=== PATIENT | female | born 1985 | race Hispanic/Latino ===

== ENCOUNTER 2019-12-29 09:27 | Outpatient (CLI) | payer OTHER, SELFPAY ==
[2019-12-29 10:30] VITALS: BP 117/86; PULSE 87
--- NOTE | 2019-12-29 10:53 | PC.NURSE ---
0927-Pt came in stating she has been leaking fluid since 299.
--- NOTE | 2019-12-29 10:54 | PC.NURSE ---
1028- called,informed pt came in for leaking fluid. ROM plus is negative, fhr reactive. Order received to discharge pt home.
== END 2019-12-29 10:30 ==
LOC: ANHOBOP 10:28 → ANHLDR 10:30
PROVIDERS: Visit Provider Obstetrics & Gynecology
DX: O42.90 Premature rupture of membranes, unspecified as to length of time between rupture and onset of labor, unspecified weeks of gestation (principal); Z3A.00 Weeks of gestation of pregnancy not specified
CPT/HCPCS: 59025; 84112; 99199

== ENCOUNTER 2019-12-30 21:45 | Inpatient (IN) | payer OTHER, SELFPAY ==
[2019-12-31] VITALS (79 sets, daily range): BP systolic 62–183; BP diastolic 35–150; PULSE 71–143; RESP 20; TEMP 36.3–37.2; O2SAT 99–100; BMI 35.3
[2019-12-31 00:19] LABS: Basophils Percent Auto 0.2 % (0.2-1.2); Eosinophils Absolute Auto 0.1 K/mm3 (0-0.3); Eosinophils Percent Auto 0.7 % (0-4.4); Hematocrit 36.9 % (37.0-47.0); Hemoglobin 12.4 g/dL (12.0-15.0); Immature Granulocyte Absolute 0.08 K/mm3 (0.00-0.031); Immature Granulocyte Percent A 0.8 % (0-0.5); Lymphocytes Absolute Auto 2.41 K/mm3 (0.9-3.2); Lymphocytes Percent Auto 24.1 % (18.3-44.2); Mean Corpuscular HGB Conc 33.6 g/dl (32-36); Mean Corpuscular Hemoglobin 29.7 pg (26-34); Mean Corpuscular Volume 88.5 fl (80-100); Mean Platelet Volume 10.4 fl (7.4-10.4); Monocytes Absolute Auto 0.7 K/mm3 (0.1-0.6); Monocytes Percent Auto 7.2 % (2.6-8.5); Neutrophils Absolute Auto 6.7 K/mm3 (1.3-6.7); Platelet Count Result 232 k/mm3 (150-375); Red Blood Count 4.17 M/mm3 (4.2-5.4); Red Cell Distribution Width 14.2 % (11.5-14.5)
[2019-12-31] MEDS: LACTATED RINGERS 1,000 ML 125 ML IV CONT ×3 (01:27→07:03)
--- NOTE | 2019-12-31 01:47 | P.PNAN_ITS ---
Anes - Eval Pre Procedure Procedure: labor epidural Date/Time: 12/31/19 01:47 Surgeon: edgar Pre Op Diagnosis: CONTRACTIONS Patient Data Age: 34 Gender: F Height: Weight: Allergies Allergy/AdvReac Type Severity Reaction Status Date / Time No Known Allergies Allergy Unknown Verified 12/08/19 12:44 Home Medications Medication Instructions Recorded Confirmed Type PNV cmb#95-ferrous fumarate-FA 1 tablet PO DAILY 12/08/19 12/08/19 History [] Laboratory Tests 12/31/19 12/31/19 00:04 00:04 WBC 10.0 K/mm3 K/mm3 (4.5-10.0) RBC 4.17 M/mm3 L M/mm3 (4.2-5.4) Hgb 12.4 g/dL g/dL (12.0-15.0) Hct 36.9 % L % (37.0-47.0) MCV 88.5 fl fl (80-100) MCH 29.7 pg pg (26-34) MCHC 33.6 g/dl g/dl (32-36) RDW 14.2 % % (11.5-14.5) Plt Count 232 k/mm3 k/mm3 (150-375) MPV 10.4 fl fl (7.4-10.4) Immature Gran % (Auto) 0.8 % H % (0-0.5) Neut % (Auto) 67.0 % % (45.5-73.1) Lymph % (Auto) 24.1 % % (18.3-44.2) [place] % (Auto) 7.2 % % (2.6-8.5) Eos % (Auto) 0.7 % % (0-4.4) Baso % (Auto) 0.2 % % (0.2-1.2) Lymph # (Auto) 2.41 K/mm3 K/mm3 (0.9-3.2) [place] # (Auto) 0.7 K/mm3 H K/mm3 (0.1-0.6) Eos # (Auto) 0.1 K/mm3 K/mm3 (0-0.3) Baso # (Auto) 0.0 K/mm3 K/mm3 (0.0-0.1) Abs Immat Gran (auto) 0.08 K/mm3 H K/mm3 (0.00-0.031) Absolute Neuts (auto) 6.7 K/mm3 K/mm3 (1.3-6.7) Absolute Nucleated RBC 0.0 K/mm3 K/mm3 (0.0-0.012) Nucleated RBC % 0.0 % % (0.0-0.2) RPR Pending Patient hx anesthesia problems: none Family hx anesthesia problems: none PMFSH Family History Family History (Updated 12/08/19 @ 12:47 by Shannon Rivers RN) Father Hypertension High cholesterol Diabetes mellitus Mother Hypertension Social History Social History Smoking status: Never smoker Substance use: never Spiritual care concerns: No Exam Day of Procedure 12/31/19 01:47
--- NOTE | 2019-12-31 03:43 | WPDOBADMIT ---
Obstetrics - Admit Note Admission Note: 34y/o @ 39 weeks who presented in spontaneous labor. VSS Contractions regular; fhr category 1 Cervix 4-5/501/-2 AROM moderate amount of clear odorless fluid Comfortable with epidural Anticipate Discussed student travel services professional with patient and she has agreed to have her do the delivery record reviewed. No pertinent additions to the history and/or any subsequent changes in the physical findings that are not consistent with the expected course of the were found. Additions to the history and/or subsequent changes in the physical findings follow. None.
[2019-12-31] MEDS: ONDANSETRON INJ 4 MG/2 ML VIAL IV PUSH (10:17)
[2019-12-31 10:54] LABS: Rapid Plasma Reagin Non-Reactive (NonReactive)
--- NOTE | 2019-12-31 12:10 | PM.OBPRVD ---
OB - Delivery Note Procedure Delivery date: 12/31/19 Intrapartal events: None Induction method: none Delivery monitor: external FHT and external uterine Route of delivery: Laceration description: Periurethral - 1st Degree Estimated blood loss (mL): 52 Anesthesia type: Epidural Narrative: Delivery per S Jeanette SIMMONS. Meconium noted at delivery. Cord clamped at 3 minutes. Cord gasses collected .5cc arterial 1.25cc venous. Baby Date of : 12/31/19 Time of : 11:49 Weeks of gestation at delivery: 39 Infant gender: Male Weight (pounds): 7 Weight (ounces): 12 presentation: vertex position: Right Occiput Anterior Placenta delivery description: Spontaneous cord vessel description: 3 Vessels score one minute: 9 score five minutes: 9
[2019-12-31] MEDS: ACETAMINOPHEN 325 MG TABLET 650 MG PO ×2 (13:01→17:06)
[2019-12-31] MEDS: IBUPROFEN 600 MG TABLET PO ×2 (14:00→22:24)
[2019-12-31] MEDS: WITCH HAZEL 40 PADS 1 PAD TOPICAL (14:01)
[2019-12-31] MEDS: BENZOCAINE 20% AER SPR (*SP) 56 GM CAN 1 SPRAY TOPICAL (14:01)
--- NOTE | 2019-12-31 15:37 | PC.NURSE ---
Patient transferred to post room #283 per wheelchair from labor and delivery. Support person present. Oriented to unit, room, information board, rooming in, admission packet and security measures. Patient verbalizes understanding.
[2020-01-01 02:41] VITALS: BP 117/73; PULSE 78; RESP 18; TEMP 36.9
[2020-01-01] MEDS: IBUPROFEN 600 MG TABLET PO ×2 (04:51→12:06)
[2020-01-01 05:41] LABS: Hematocrit 31.6 % (37.0-47.0); Hemoglobin 10.6 g/dL (12.0-15.0)
[2020-01-01 08:00] VITALS: BP 110/71; PULSE 78; RESP 18; TEMP 36.3; O2SAT 100
--- NOTE | 2020-01-01 08:14 | PM.OBPNVD ---
OB - PN: Subj Subjective Date/time seen: 01/01/20 08:14 OB - PN: Obj Data Labs CBC & Chem 7: 01/01/20 05:06 Labs: Laboratory Results - last 24 hr 12/31/19 01/01/20 00:04 05:06 Hgb 10.6 L Hct 31.6 L RPR Non-reactive OB - PN A/P Plan day: 1 Plan: routine care Time Spent With Patient Time: Total time spent is greater than 50% in coordination of care (as documented) at patient's floor/unit and/or counseling patient: Time with patient: less than 15 minutes Review of Systems Review of Systems: All systems reviewed & are unremarkable except as noted in HPI and below Exam Narrative: Exam Narrative: Fundus firm and vaginal flow controlled. Lower ext neg for edema. No pain, redness, or warmth. Homans negative.
[2020-01-01] MEDS: WITCH HAZEL 40 PADS 1 PAD TOPICAL (09:15)
[2020-01-01] MEDS: BENZOCAINE 20% AER SPR (*SP) 56 GM CAN 1 SPRAY TOPICAL (09:15)
[2020-01-01] MEDS: MULTIVIT/MIN/PREN/FOL AC/IRON TABLET 1 TAB PO (09:15)
[2020-01-01] MEDS: DOCUSATE SODIUM 100 MG CAPSULE PO (09:16)
--- NOTE | 2020-01-01 11:11 | PC.NURSE ---
Self care and infant care discharge instructions given to mother including follow up visit date and time. Mother verbalized understanding. No questions or concerns voiced. Family at side.
--- NOTE | 2020-01-01 11:32 | PC.NURSE ---
Patient viewed the discharge video Mother & Baby Care, The First Two Weeks . Patient was given the opportunity and encouraged to ask questions. Patient verbalized understanding of information shared and has been given the mother/baby guide for home reference.
--- NOTE | 2020-01-01 13:00 | PC.NURSE ---
1300 Breast feeding note; mother called nurse to room to assist and evaluate breast feeding as nurse had requested her do to. Report was that infant was probably latching shallow for feedings. Nurse instructed mother how to assess that baby was latching with deep latch, and mother agreed that probably baby had been latching shallow. Mother called nurse when baby was more awake and showing feeding cues. Mother was shown cross cradle position alignment, with use of nose to nipple latch-on technique, holding breast in ?U? hold and asymmetrical latch on discussing rational for each. Baby awake, eager; several attempts required; cross-cradle position used. Baby latched after several attempts, apparent deep latch; maintained latch and demonstrated vigorous, rhythmic sucking. nursed eagerly, with steady draws and frequent swallowing noted. Reviewed signs of a correct latch, effective nursing and suck swallow ratio. Mother stated she could feel the difference with a deeper latch; pt's present and also was shown baby at breast with deep latch and rhythmic sucking. Reviewed frequency and duration of feedings, q2-3 hours and on demand, and nipple care. Mother is wishing for 24 hour discharge. Explained to mother she can call or return if she has issues. Mother is feeding as required and waking infant to feed if needed. is currently meeting outcomes for weight, output, jaundice and feeding frequencies. Mother states she feels confident to continue effective at home. Reviewed transition to breast milk, signs of adequate intake, and engorgement/relief. Instructed to call ICP if intake/output less than required. Reviewed regular medications mother is taking. Information provided per Joanna. Reviewed community resources on the [employer] website and in the Mom/Baby guide. Information on outpatient services provided. Mother has no further questions at this time. Reviewed feeding cues, frequencies, duration of feedings, feeding elimination flow sheet, and signs of adequate intake. Infant was[able/unable] to maintain latch without discomfort to mother. Nipple care reviewed. Instructed mother to call out for RN assistance if she is unable to latch infant for feeding or she has discomfort with nursing. Instructed feeding should be initiated three hours from start of last feeding or if feeding cues are noted before. Mother voiced understanding of information shared.
--- NOTE | 2020-01-01 13:04 | WPDANLDPN2 ---
Anes-Prog Note L&D Date/Time: 01/01/20 13:04 Comfortable throughout: labor Neuraxial method: epidural Epidural/Spinal procedure site: clean & non-tender Neuro status: Neuro function grossly intact. Cardiovascular status: normal Respiratory status: normal Airway patency: baseline Mental status: baseline Post-Op hydration status: normal Vital Signs: Last Vital Signs Temp 36.3 C L 01/01/20 08:00 Pulse 78 01/01/20 08:00 Resp 18 01/01/20 08:00 BP 110/71 01/01/20 08:00 Pulse Ox 100 01/01/20 08:00 Pain score (VAS): 0/10. Patient resting in bed at time of assessment, appears comfortable. Support person at bedside. Post-procedural complaints: none Patient feedback: Patient satisfied with anesthetic care.
--- NOTE | 2020-01-01 14:15 | PC.NURSE ---
Addendum entered by Angelique Early RN 01/01/20 14:16: 0945 pt seen at Original Note: Consult with pt., mother reports she attempted to breast feed first child without success. was not latching, mother began supplementing within the first few feedings and quickly switched to bottle feeding. Mother is pleased this infant is eagerly latching, mother reports some tenderness with feedings. Requested mother call out next feeding for assist.
[2020-01-01] MEDS: TETANUS,DIPHTHERIA,AC PERTUSSIS ADULT 0.5 ML (ADACEL) IM (14:17)
[2020-01-02 09:27] VITALS: BP 127/78; PULSE 75; RESP 20; TEMP 36.9
--- NOTE | 2020-01-05 08:04 | PM.OBDSVD ---
DS: Diagnosis Admitting Diagnosis Admitting Diagnosis: Encounter for supervision of normal , unspecified, third trimester Discharge Diagnosis (1) Vaginal delivery: Code(s): O80 - Encounter for full-term uncomplicated delivery Status: Acute OB - DS: Summary OB Procedures : None OB Procedures Intrapartum: Spontaneous Vag Delivery OB Procedures: : None Time Spent with Patient Time attestation: Total time spent providing and/or coordinating discharge services: DS: Data Data Completed and Pending Pending studies at discharge: Pending at discharge 12/31/19 14:21 Surgical [PTH] Routine Discharge Plan Discharge Attending physician on discharge: Samanta Barth Consulting providers: Pily Ro Discharging Clinician: Pily Ro Patient Disposition: Home, Self-Care Activity: may drive after 2 weeks and pelvic rest Diet: regular Discharge Instructions: Education: Mom and Baby Guide Given to: Mother Follow-Up: Call your delivering provider's office for an appointment to be seen in: 4 Weeks Mom and baby should come to the [facility] for the follow-up appointment. Appointment Date/Time: January 02, 2020 at 9:00 am What to expect at your follow-up visit: Blood Pressure Check Physical Assessment Call [phone] if you are unable to keep your appointment time. BREAST CARE: 1. Wear a snug supportive bra. 2. For engorgement discomfort: Breast Feeding: A. Apply warm moist washcloths B. Express milk as needed to relieve engorgement C. Wear loose clothing 3. For sore nipples: A. Identify correct latch-on B. Apply warm moist washcloths before and after nursing C. Air dry nipples after nursing D. May apply Lansinoh cream to nipples EPISIOTOMY/PERINEAL CARE: 1. Until bleeding stops, use your barbara bottle after urinating 2. Change your pad frequently throughout the day 3. You may take sitz baths several times a day (fill your bathtub with warm water and soak for 20 minutes.) Do NOT bathe in the water 4. No tub baths until seen by your physician - You may shower ACTIVITY: 1. Rest as much as possible. 2. Do not exercise or lift anything heavier than your baby (such as laundry or other children.) 3. Avoid stairs or driving as much as possible. 4. Do not put anything into the vagina. No douching, tampons, or sexual activity until seen by physician. NOTIFY PHYSICIAN IF YOU HAVE ANY QUESTIONS OR IF ANY OF THE FOLLOWING SYMPTOMS OCCUR: 1. If your episiotomy becomes red, swollen, or more painful than what you have experienced in the hospital. 2. If your vaginal bleeding becomes foul smelling. 3. If your vaginal bleeding becomes more heavy than a period or if your bleeding changes from pink to bright red. However, you may pass an occasional walnut-sized clot once or twice for the first week . 4. If you experience a sharp, shooting pain in you calves. 5. If you discover a hard, reddened area on your breast or if you experience flu-like symptoms. DIET: 1. Eat regular, well-balanced meals. 2. Drink plenty of fluids daily. If , drink to thirst. Stand Alone Forms: General Discharge Information Follow-up/Referrals: Pily Ro CNM [Certified Nurse It Business Systems Analyst] - Discharge Medications: New acetaminophen [Mapap (acetaminophen)] 325 mg Tablet 650 mg PO Q6H PRN (Reason: Mild Pain (1-3) Or Headache) RF: 0 docusate sodium 100 mg Capsule 100 mg PO BID PRN (Reason: Constipation) RF: 0 ibuprofen 600 mg Tablet 600 mg PO Q6H PRN (Reason: Cramping) RF: 0 simethicone 80 mg Tablet,Chewable 80 mg PO Q2H PRN (Reason: Gas) RF: 0 Continued PNV cmb#95-ferrous fumarate-FA [] 28 mg iron- 800 mcg Tablet 1 tablet PO DAILY RF: 0 Date of admission: 12/30/19 21:45 Primary Care Provider: UNKNOWN,DOCTOR Ad
== END 2020-01-01 14:21 | disposition home or self-care (01) | DRG 560 ==
LOC: ANHLDR 12-31 07:40 → ANHOB2 12-31 15:41
PROVIDERS: Advanced Practice Midwife; Admitting Provider Obstetrics & Gynecology; Visit Provider Obstetrics & Gynecology
DX: O70.0 First degree perineal laceration during delivery (principal); Z37.0 Single live birth; Z3A.39 39 weeks gestation of pregnancy
CPT/HCPCS: 36415; 85014; 85018; 85025; 86592; 86850; 86900; 86901; 88307; 90715; A9270; J2405; J2590; J2795; J7120

== ENCOUNTER 2022-03-20 12:09 | Emergency (ER) | payer OTHER, SELFPAY ==
--- NOTE | ~2022-03-20 | CT_ITS ---
EXAMINATION: CT brain wo con DATE: 03/20/2022 12:57 INDICATION: Posterior headache. Confusion. Fall. TECHNIQUE: Computed tomography (CT) of the head was performed without intravenous contrast. The mA wa s adjusted according to patient size. Iterative reconstruction technique was employed. The dose-lengt h product was 605.33 mGy-cm. COMPARISON: None FINDINGS: There is no intracranial hemorrhage, acute infarction, or abnormal intracranial mass lesion . The ventricles are normal in size. The mastoid air cells are normal. The paranasal sinuses are jose r. The orbits are normal. There is left posterior scalp soft tissue swelling. IMPRESSION: 1. Normal brain. Reviewed, dictated and finalized at location A. IMPRESSION: 1. Normal brain.
--- NOTE | ~2022-03-20 | CT_ITS ---
EXAMINATION: CT cervical spine wo con DATE: 03/20/2022 12:57 INDICATION: Head injury. Fall. TECHNIQUE: Computed tomography (CT) of the cervical spine was performed without intravenous contrast. Automated exposure control and iterative reconstruction technique were employed. The dose-length pro duct was 419.75 mGy-cm. COMPARISON: None FINDINGS: There is 4 degrees dextrocurvature of cervical spine. There is mild kyphosis of cervical sp ine. Vertebral body heights and intervertebral disc heights are normal. At C7-T1, there is mild bilat eral facet joint osteoarthritis. No neural foraminal stenosis or central canal stenosis. IMPRESSION: 1. No fracture. Reviewed, dictated and finalized at location A. IMPRESSION: 1. No fracture.
[2022-03-20 12:13] VITALS: BP 137/84; PULSE 94; RESP 16; TEMP 36; O2SAT 99
--- NOTE | 2022-03-20 12:41 | ED.HEATRA ---
HPI - Head Injury General Chief complaint: Head Injury Stated complaint: head injury Time Seen by Provider: 03/20/22 12:35 Source: RN notes reviewed History of Present Illness HPI Narrative: Patient presents emergency department from home for head injury. Patient states yesterday she was at congregational when she slipped and fell backwards landed on her buttocks and striking the back of her head she states she had no loss of consciousness but felt confused following the she states that she has had residual headache and feels groggy. She has not taking medication for symptoms she does note that she has some mild neck pain on the right side as well she denies any fevers or chills vision changes numbness or tingling in the extremities or any other symptoms Related Data Home Medications Medication Instructions Recorded Confirmed PNV cmb#95-ferrous fumarate-FA 1 tablet PO DAILY 12/08/19 12/08/19 [] Allergies Allergy/AdvReac Type Severity Reaction Status Date / Time No Known Allergies Allergy Unknown Verified 03/20/22 12:17 Review of Systems Review of Systems: Gen.: Denies fevers or chills Eyes: Denies eye pain or visual change ENT: Denies congestion Respiratory: Denies shortness of breath CV: Denies chest pain or palpitations GI: Denies abdominal pain nausea, emesis denies chance of Musculoskeletal: Denies back pain or muscle pain Neuro: See HPI Skin: Denies rash Except as documented, all other systems reviewed and negative [facility] Past Medical History Medical History (Updated 03/20/22 @ 13:04 by Pantera Carolina DO) Patient denies significant medical history Family History Family History (Updated 12/08/19 @ 12:47 by Shannon Rivers RN) Father Hypertension High cholesterol Diabetes mellitus Mother Hypertension Social History Social History Smoking status: Never smoker Substance use: never Spiritual care concerns: No Exam Narrative: APPEARANCE: No acute distress, nontoxic, resting in bed EYES: EOMI HEENT: Normocephalic, atraumatic, OMM TMs clear bilaterally no facial tenderness Neck: No midline tenderness palpation tender palpation right [place] muscles C5-7 RESPIRATORY: No respiratory distress Clear to auscultation bilaterally with no rhonchi wheezing or rales. CARDIOVASCULAR: Regular rate and rhythm without murmurs rubs or gallops. ABDOMINAL: Soft, nontender, nondistended, MUSCULOSKELETAl: Moves all extremities. No clubbing, cyanosis or edema. NEURO: Awake and alert x 4. Following commands, speech normal, no focal deficits SKIN:: Warm, dry. No rashes lesions or abrasions PSYCHIATRIC: Normal affect/mood, Course Course Emergency Course: Discussed with patient results of workup and diagnosis. Discussed need for follow-up with primary care, proper use of medication, and reasons to return to the emergency department. Patient understands and agrees to current treatment plan Vital Signs Vital signs: Vital Signs Temperature 96.8 F L 03/20/22 12:13 Pulse Rate 94 03/20/22 12:13 Respiratory Rate 16 03/20/22 12:13 Blood Pressure 137/84 03/20/22 12:13 Pulse Oximetry 99 03/20/22 12:13 Temperature 96.8 F L 03/20/22 12:13 Pulse Rate 94 03/20/22 12:13 Respiratory Rate 16 03/20/22 12:13 Blood Pressure 137/84 03/20/22 12:13 Pulse Oximetry 99 03/20/22 12:13 MDM - Head Injury Imaging Data Radiologist's impression: ITS Impressions Head CT 03/20/22 12:58 IMPRESSION: 1. Normal brain. Cervical Spine CT 03/20/22 12:59 IMPRESSION: 1. No fracture. Discharge Plan Discharge Clinical Impression: Contusion of head, Cervical strain, acute Patient Disposition: Home, Self-Care Condition: Stable Instructions: Antibiotic Form, Head Injury (ED) Additional Instructions: Return for change in mental status vomiting or any other symptoms of concern Prescriptions:
[2022-03-20 13:42] VITALS: BP 118/68; PULSE 70; RESP 16; TEMP 36.8; O2SAT 100
== END 2022-03-20 13:44 | disposition home or self-care (01) ==
PROVIDERS: Emergency Provider Emergency Medicine
DX: S00.93XA Contusion of unspecified part of head, initial encounter (principal); S16.1XXA Strain of muscle, fascia and tendon at neck level, initial encounter; W01.0XXA Fall on same level from slipping, tripping and stumbling without subsequent striking against object, initial encounter
CPT/HCPCS: 70450; 72125; 99284

== ENCOUNTER 2023-03-31 23:40 | Emergency (ER) | payer OTHER, SELFPAY ==
[2023-03-31 23:42] VITALS: BP 143/85; PULSE 97; RESP 16; TEMP 36.8; O2SAT 100
--- NOTE | 2023-04-01 01:39 | PC.NURSE ---
no answer at triage
== END 2023-04-01 03:12 | disposition left against medical advice (07) ==
LOC: ANHED 04-01 01:43
DX: S61.411A Laceration without foreign body of right hand, initial encounter (principal)
CPT/HCPCS: 99199

== ENCOUNTER 2024-01-28 13:51 | Emergency (ER) | payer OTHER, SELFPAY ==
[2024-01-28 14:10] VITALS: BP 127/74; PULSE 96; RESP 18; TEMP 36.7; O2SAT 100
--- NOTE | 2024-01-28 14:21 | ED.URI ---
HPI - URI/Sore Throat General Chief Complaint: Upper Respiratory Infection Stated Complaint: congested,JOHNSON,cough 21wks Time Seen by Provider: 01/28/24 13:55 Source: patient Mode of arrival: ambulatory Limitations: no limitations History of Present Illness HPI Narrative: Ciara is a 38-year-old female patient presenting to the clinic today with complaints of headache, cough, and congestion for the past 4 weeks. Over the last week she has developed green nasal congestion and sinus pressure. Denies any fever or chills. Contacted her OBGYN who is wanting her to come in and be tested for COVID and influenza. MD elicited complaint: cough, nasal congestion and sinus pain Related Data Home Medications Medication Instructions Recorded Confirmed vit no.95-ferrous 1 tablet PO DAILY 12/08/19 01/28/24 fumarate 28 mg-folic acid 800 mcg tablet () aspirin 81 mg tablet,delayed 81 mg PO DAILY 01/28/24 01/28/24 release (Adult Low Dose Aspirin) Allergies Allergy/AdvReac Type Severity Reaction Status Date / Time No Known Allergies Allergy Unknown Verified 03/20/22 12:17 Review of Systems Review of Systems: Pertinent positives per HPI. Patient denies any fever, chills, rash, headache, visual changes, dizziness, cough, shortness of breath, chest pain, palpitations, nausea, vomiting, diarrhea, constipation, abdominal pain, or any urinary issues. [facility] Past Medical History Medical History (Updated 01/28/24 @ 14:37 by Chris Huston APRN) Patient denies significant medical history Family History Family History Father Hypertension High cholesterol Diabetes mellitus Mother Hypertension Social History Social History Smoking status: Never smoker Substance use: never Spiritual care concerns: No Comments At the time of my signature, I reviewed and agree with the nursing past medical, surgical, social, and family history. There is no relevant family history pertinent to the patient complaint. Exam Narrative: General: Well-developed, well nourished, in no apparent distress Head: Normocephalic, atraumatic Eyes: Pupils equally round and reactive to light bilaterally, EOM intact, sclera and conjunctive clear, no discharge, lids normal Ears: TMs intact and clear, ear canals clear, no drainage, grossly hearing normal. Nose: Nares patent, green nasal discharge, moderate inflammation to bilateral turbinates, left sided maxillary sinus tenderness. Mouth: Oral pharynx without lesions or masses, good dentition, MMM. Neck: Supple, trachea midline, no enlargement of anterior or posterior cervical nodes, no thyroid masses or goiter palpable. Cardio: Regular rate and rhythm, s1 and s2 normal, no murmur appreciated. Resp: Clear to auscultation bilaterally, no rhonchi, rales, wheezing or rubs Course Course Emergency Course: Portions of this record may have been created with voice recognition software. Level of Care: Express Care Visit Vital Signs Vital signs: Vital Signs Temperature 36.7 C 01/28/24 14:10 Pulse Rate 96 01/28/24 14:10 Respiratory Rate 18 01/28/24 14:10 Blood Pressure 127/74 01/28/24 14:10 Pulse Oximetry 100 01/28/24 14:10 Oxygen Delivery Room Air 01/28/24 14:10 Temperature 36.7 C 01/28/24 14:10 Pulse Rate 96 01/28/24 14:10 Respiratory Rate 18 01/28/24 14:10 Blood Pressure 127/74 01/28/24 14:10 Pulse Oximetry 100 01/28/24 14:10 Oxygen Delivery Room Air 01/28/24 14:10 Vital signs reviewed MDM - URI/Sore Throat MDM Narrative Medical decision making narrative: At the time of visit patient is resting comfortably on the exam table. Patient appears to be nontoxic. Labs: COVID and influenza testing was completed per patient's request and negative. Plan: I suspect patient has sinus infection
== END 2024-01-28 14:43 | disposition home or self-care (01) ==
PROVIDERS: Emergency Provider Nurse Practitioner Family
DX: O99.512 Diseases of the respiratory system complicating pregnancy, second trimester (principal); Z3A.21 21 weeks gestation of pregnancy; J01.90 Acute sinusitis, unspecified; Z20.822 Contact with and (suspected) exposure to COVID-19; Z79.82 Long term (current) use of aspirin
CPT/HCPCS: 87426; 87804; 99213; G0463

== ENCOUNTER 2024-06-02 06:43 | Inpatient (IN) | payer OTHER, SELFPAY ==
[2024-06-02] VITALS (129 sets, daily range): BP systolic 78–150; BP diastolic 30–124; PULSE 25–165; RESP 18; TEMP 36.1–36.8; O2SAT 86–100; BMI 34.9
--- NOTE | 2024-06-02 07:23 | LDADM ---
This patient, Ciara Shea, was admitted to Labor/Delivery/Recovery 103 on 06/02/24 at 06:43. Plans for labor, pain management and were discussed with patient. Patient/family oriented to hospital policies and general routines including ID bracelet, bed and alarms, visiting hours, pain management, procedures, bathroom and other care routines, personal items, smoking policy, room service/diet and guest tray routines, security routines, and visiting hours. Patient/Family are encouraged to report perceived risks to care and to ask questions if they do not understand what they are told or what they should do. See [facility] for further documentation.
[2024-06-02] MEDS: OXYTOCIN 30 UNITS/NS 500 ML 30 UNITS/500 ML BAG IV CONT (07:25)
[2024-06-02] MEDS: LACTATED RINGERS 1,000 ML 125 ML IV CONT ×3 (07:26→14:51)
[2024-06-02 07:45] LABS: Basophils Percent Auto 0.3 % (0.2-1.2); Eosinophils Absolute Auto 0.1 K/mm3 (0-0.3); Eosinophils Percent Auto 1.6 % (0-4.4); Hematocrit 32.9 % (37.0-47.0); Hemoglobin 11.4 g/dL (12.0-15.0); Immature Granulocyte Absolute 0.08 K/mm3 (0.00-0.031); Immature Granulocyte Percent A 1.1 % (0-0.5); Lymphocytes Percent Auto 32.4 % (18.3-44.2); Mean Corpuscular HGB Conc 34.7 g/dl (32-36); Mean Corpuscular Hemoglobin 31.2 pg (26-34); Mean Corpuscular Volume 90.1 fl (80-100); Mean Platelet Volume 10.6 fl (7.4-10.4); Monocytes Absolute Auto 0.6 K/mm3 (0.1-0.6); Monocytes Percent Auto 8.3 % (2.6-8.5); Neutrophils Percent Auto 56.3 % (45.5-73.1); Platelet Count Result 198 k/mm3 (150-375); Red Blood Count 3.65 M/mm3 (4.2-5.4); Red Cell Distribution Width 14.3 % (11.5-14.5); White Blood Count 7.1 K/mm3 (4.5-10.0)
[2024-06-02 08:16] LABS: HIV 1/2 Ab P24 Ag Result Negative (Negative)
[2024-06-02 08:18] LABS: Rapid Plasma Reagin Non-Reactive (NonReactive)
--- NOTE | 2024-06-02 10:03 | WPDOBADMIT ---
Obstetrics - Admit Note Admission Note: record reviewed. No pertinent additions to the history and/or any subsequent changes in the physical findings that are not consistent with the expected course of the were found. Additions to the history and/or subsequent changes in the physical findings follow. IOL, SROM, anticipate vaginal delivery
--- NOTE | 2024-06-02 13:20 | WPDANESEPPF ---
Anes - Initial Pre Proc Eval Date/Time: 06/02/24 13:20 Surgeon: Jorge Barth MD Pre Op Diagnosis: Induction of Labor Patient Data Age: 39 Gender: F Height: Weight: Last Vital Signs Temp 36.4 C 06/02/24 13:00 Pulse 98 06/02/24 13:18 BP 123/80 06/02/24 13:18 Pulse Ox 100 06/02/24 13:19 O2 Del Method Room Air 06/02/24 07:21 Allergies Allergy/AdvReac Type Severity Reaction Status Date / Time No Known Allergies Allergy Unknown Verified 05/12/24 12:37 Home Medications Medication Instructions Recorded Confirmed Type vit no.95-ferrous 1 tablet PO DAILY 12/08/19 05/12/24 History fumarate 28 mg-folic acid 800 mcg tablet () aspirin 81 mg tablet,delayed 81 mg PO DAILY 01/28/24 05/12/24 History release (Adult Low Dose Aspirin) Laboratory Tests 06/02/24 06:58 WBC 7.1 K/mm3 (4.5-10.0) RBC 3.65 L M/mm3 (4.2-5.4) Hgb 11.4 L g/dL (12.0-15.0) Hct 32.9 L % (37.0-47.0) MCV 90.1 fl (80-100) MCH 31.2 pg (26-34) MCHC 34.7 g/dl (32-36) RDW 14.3 % (11.5-14.5) Plt Count 198 k/mm3 (150-375) MPV 10.6 H fl (7.4-10.4) Immature Gran % (Auto) 1.1 H % (0-0.5) Neut % (Auto) 56.3 % (45.5-73.1) Lymph % (Auto) 32.4 % (18.3-44.2) [place] % (Auto) 8.3 % (2.6-8.5) Eos % (Auto) 1.6 % (0-4.4) Baso % (Auto) 0.3 % (0.2-1.2) Lymph # (Auto) 2.30 K/mm3 (0.9-3.2) [place] # (Auto) 0.6 K/mm3 (0.1-0.6) Eos # (Auto) 0.1 K/mm3 (0-0.3) Baso # (Auto) 0.0 K/mm3 (0.0-0.1) Abs Immat Gran (auto) 0.08 H K/mm3 (0.00-0.031) Absolute Neuts (auto) 4.0 K/mm3 (1.3-6.7) Absolute Nucleated RBC 0.000 K/mm3 (0.0-0.012) Nucleated RBC % 0.0 % (0.0-0.2) RPR Non-reactive (NonReactive) HIV 1&2 Ab/P24 Ag 4thGn Negative (Negative) Blood Type A Positive Antibody Screen Negative Patient hx anesthesia problems: none Family hx anesthesia problems: none Results Review: All pre-operative results and documents have been reviewed as part of the pre-operative evaluation. [facility] Past Medical History Medical History Patient denies significant medical history Family History Family History Father Diabetes mellitus High cholesterol Hypertension Mother Hypertension Sibling Hypertension Asthma Social History Social History Smoking status: Never smoker Substance use: never Do You Feel Safe in your Home?: Yes Lack of Transportation: No Lack of Food: Never True Current Housing: I Have Housing Concerned About Future Housing: No Difficulty Paying Gas/Electric Bills: No Difficulty Paying for Meds: No Currently Unemployed: No Education: Don't Know Difficulty w/ Childcare or Family Care: No Spiritual care concerns: No Anes - Eval Final PreProcedure Day of Procedure 06/02/24 13:20 Patient weight: obese Heart: regular rate and rhythm Lungs: clear to auscultation Neurological: alert and oriented ASA classification: II Emergent: no Anesthetic plan: proceed Anesthesia type and monitoring: regional epidural and standard monitoring Results Review: All pre-operative results and documents have been reviewed as part of the pre-operative evaluation. Informed Consent: The patient's anesthetic plan and its attendant risks and benefits were discussed with the patient/family/POA. Questions were solicited and answers provided to the satisfaction of the patient/family/POA.
[2024-06-02] MEDS: SODIUM CHLORIDE 0.9% IV 300 ML 600 ML I-UTERINE (16:04)
--- NOTE | 2024-06-02 16:39 | PM.OBPRVD ---
OB - Vaginal Delivery Note Procedure Delivery date: 06/02/24 Intrapartal Events: Decelerations (suspect abruption) and Non-Reassuring Status Induction method: AROM Delivery monitor: External FHT and Internal Uterine Route of delivery: Episiotomy description: None Laceration Description: None Specimen: Yes Quantitative Blood Loss (ml): 100 Anesthesia type: Epidural Disposition: Floor Complications: No immediate complications Baby Date of : 06/02/24 Time of : 16:28 Gestational Age by Date: 39 Infant gender: Male presentation: vertex position: Left Occiput Anterior Placenta delivery description: Spontaneous Cord Vessel Description: 3 Vessels and Nuchal Cord (x1) score one minute: 8 score five minutes: 9 Narrative: mother and baby skin to skin in stable condition
[2024-06-02] MEDS: OXYTOCIN 30 UNITS/NS 500 ML 30 UNITS/500 ML BAG 125 UNITS IV CONT (17:02)
[2024-06-02] MEDS: ACETAMINOPHEN 325 MG TABLET 650 MG PO (18:44)
--- NOTE | 2024-06-02 20:00 | OBPPTRN ---
Patient transferred to post room #291 via W/C. Support person present. Oriented to unit, room, information board, rooming in, admission packet and security measures. Patient verbalizes understanding.
[2024-06-02] MEDS: IBUPROFEN 600 MG TABLET PO (20:40)
[2024-06-03 00:20] VITALS: BP 129/82; PULSE 76; RESP 16; TEMP 36.6
[2024-06-03 03:30] VITALS: BP 134/81; RESP 16; TEMP 36.3
[2024-06-03 04:45] LABS: Hematocrit 30.8 % (37.0-47.0); Hemoglobin 10.3 g/dL (12.0-15.0)
--- NOTE | 2024-06-03 05:15 | PM.OBPNVD ---
OB - PN: Subj Subjective Date/time seen: 06/03/24 05:15 Interval history: PPD#1 Doing well, pain controlled No nausea or vomiting Voiding without issue Combo feeding OB - PN: Obj Data Labs 06/03/24 03:30 Labs: Laboratory Results - last 24 hr 06/02/24 06/03/24 06:58 03:30 WBC 7.1 RBC 3.65 L Hgb 11.4 L 10.3 L Hct 32.9 L 30.8 L MCV 90.1 MCH 31.2 MCHC 34.7 RDW 14.3 Plt Count 198 MPV 10.6 H Immature Gran % (Auto) 1.1 H Neut % (Auto) 56.3 Lymph % (Auto) 32.4 [place] % (Auto) 8.3 Eos % (Auto) 1.6 Baso % (Auto) 0.3 Lymph # (Auto) 2.30 [place] # (Auto) 0.6 Eos # (Auto) 0.1 Baso # (Auto) 0.0 Abs Immat Gran (auto) 0.08 H Absolute Neuts (auto) 4.0 Absolute Nucleated RBC 0.000 Nucleated RBC % 0.0 RPR Non-reactive HIV 1&2 Ab/P24 Ag 4thGn Negative Blood Type A Positive Antibody Screen Negative OB - PN A/P Assessment and Plan (1) Vaginal delivery: Code(s): O80 - Encounter for full-term uncomplicated delivery Status: Acute Plan day: 1 Plan: routine care Time Spent With Patient Time: Total time spent is greater than 50% in coordination of care (as documented) at patient's floor/unit and/or counseling patient: Review of Systems Review of Systems: All systems reviewed & are unremarkable except as noted in HPI and below Exam Const: General: comfortable and no acute distress Orientation/consciousness: patient oriented x3 Resp: Effort & Inspection: normal respiratory effort
[2024-06-03] MEDS: IBUPROFEN 600 MG TABLET PO ×3 (07:15→23:50)
[2024-06-03] MEDS: DOCUSATE SODIUM 100 MG CAPSULE PO ×2 (07:16→17:48)
[2024-06-03] MEDS: POLYSACCHARIDE IRON COMPLEX 150 MG CAPSULE PO (07:16)
[2024-06-03 07:45] VITALS: BP 123/83; PULSE 72; RESP 16; TEMP 37.3; O2SAT 99
--- NOTE | 2024-06-03 11:30 | PC.NURSE ---
Introductions were made, then consulted with patient to assess needs related to . Mother led the conversation with her?plans to feed?her infant and the?experience so far. Discussed milk production, building/maintaining a milk supply, and pumping frequency. Mother has a history of latch issues where her nipples were cracked and bleeding. She doesn't seem to have any desire to put baby to breast but she was encouraged to call for assistance if she does decide to breastfeed. We reviewed that pumping shouldn't hurt, how to take apart the pump pieces for cleaning, and the supply and demand nature of breast milk production. Use and storage of breast milk discussed and she has the mom/baby guide for reference. Parents voiced understanding of information, demonstrated learning and will call if there is a request for assistance. Reported to the Primary RN.
[2024-06-03] MEDS: ACETAMINOPHEN 325 MG TABLET 650 MG PO ×2 (11:58→23:49)
--- NOTE | 2024-06-03 12:06 | WPDANESPN ---
Anes - Prog Note Post-Op Date/Time: 06/03/24 12:06 Cardiovascular status: normal Respiratory status: normal Airway patency: baseline Mental status: baseline Post-Op hydration status: normal Vital Signs: Last Vital Signs Temp 37.3 C 06/03/24 07:45 Pulse 72 06/03/24 07:45 Resp 16 06/03/24 07:45 BP 123/83 06/03/24 07:45 Pulse Ox 99 06/03/24 07:45 O2 Del Method Room Air 06/02/24 20:40 Pain Score (VAS): 0 I/O: Intake & Output 06/02/24 06/03/24 06/03/24 23:59 07:59 15:59 Output Total 645 Balance -645 Laboratory Tests 06/03/24 03:30 06/03/24 03:30 Hgb 10.3 L Hct 30.8 L Post-procedural complaints: none Patient Feedback: Patient satisfied with anesthetic care.
--- NOTE | 2024-06-03 12:07 | WPDANESPN ---
Anes - Prog Note Post-Op Date/Time: 06/03/24 12:07 Cardiovascular status: normal Respiratory status: normal Airway patency: baseline Mental status: baseline Post-Op hydration status: normal Vital Signs: Last Vital Signs Temp 37.3 C 06/03/24 07:45 Pulse 72 06/03/24 07:45 Resp 16 06/03/24 07:45 BP 123/83 06/03/24 07:45 Pulse Ox 99 06/03/24 07:45 O2 Del Method Room Air 06/02/24 20:40 Pain Score (VAS): 0 I/O: Intake & Output 06/02/24 06/03/24 06/03/24 23:59 07:59 15:59 Output Total 645 Balance -645 Laboratory Tests 06/03/24 03:30 06/03/24 03:30 Hgb 10.3 L Hct 30.8 L Post-procedural complaints: none Patient Feedback: Patient satisfied with anesthetic care.
[2024-06-03 12:17] VITALS: BP 128/75; PULSE 84; RESP 16; TEMP 36.5; O2SAT 100
[2024-06-03 19:30] VITALS: BP 133/92; PULSE 75; RESP 16; TEMP 36.7
[2024-06-03 22:17] VITALS: BP 142/84; PULSE 100; RESP 18; TEMP 36.9; O2SAT 99
[2024-06-04 04:53] VITALS: BP 131/91; PULSE 84; RESP 16; TEMP 36.8; O2SAT 99
[2024-06-04] MEDS: IBUPROFEN 600 MG TABLET PO (07:43)
[2024-06-04] MEDS: DOCUSATE SODIUM 100 MG CAPSULE PO (07:44)
--- NOTE | 2024-06-04 07:44 | PM.OBPNVD ---
OB - PN: Subj Subjective Date/time seen: 06/04/24 07:44 Interval history: PPD#2 Doing well, pain controlled No nausea or vomiting Voiding without issue Combo feeding OB - PN: Obj Data Labs 06/03/24 03:30 OB - PN A/P Plan day: 2 Plan: routine care and discharge home Time Spent With Patient Time: Total time spent is greater than 50% in coordination of care (as documented) at patient's floor/unit and/or counseling patient: Review of Systems Review of Systems: All systems reviewed & are unremarkable except as noted in HPI and below Exam Const: General: cooperative and healthy appearing Skin: General skin exam: normal color Neuro: General: patient oriented x3
--- NOTE | 2024-06-04 07:46 | P.DS_ITS ---
DS: Admitting Diagnosis Discharge Date 06/04/24 Admitting Diagnosis IOL DS: Discharge Diagnosis Discharge Diagnosis (1) Vaginal delivery: Code(s): O80 - Encounter for full-term uncomplicated delivery Status: Acute OB - DS: Summary OB Procedures : None OB Procedures Intrapartum: Spontaneous Vag Delivery OB Procedures: : None Peripartum Data Laceration Description: None Episiotomy description: None Time Spent with Patient Time attestation: Total time spent providing and/or coordinating discharge services: DS: Data Data Completed and Pending Pending studies at discharge: Pending at discharge 06/02/24 16:51 Surgical [PTH] Routine Discharge Plan Discharge Attending physician on discharge: Jorge Barth Discharging Clinician: Ryann Felipe Patient Disposition: Home, Self-Care Activity: pelvic rest Diet: regular Patient Instructions: Antibiotic Form Stand Alone Forms: General Discharge Information Follow-up/Referrals: Ryann Felipe, CNM [Certified Nurse Psychology Intern] - 1 Week Discharge Medications: New ibuprofen 600 mg Tablet 600 mg PO Q6H PRN (Reason: Cramping) Qty: 30 1RF Continued PNV cmb#95-ferrous fumarate-FA [] 28 mg iron- 800 mcg Tablet 1 tablet PO DAILY Discontinued aspirin [Adult Low Dose Aspirin] 81 mg Tablet,Delayed Release (Dr/Ec) 81 mg PO DAILY Date of admission: 06/02/24 06:43 Primary Care Provider: [facility] Admitting Provider: Jorge Barth Attending physician on admission: Jorge Barth Condition: Stable
[2024-06-04 07:55] VITALS: BP 140/85; PULSE 77; RESP 16; TEMP 37.2; O2SAT 98
--- NOTE | 2024-06-04 09:30 | PC.NURSE ---
Consulted with mother concerning needs and she shared her desire to pump and bottle feed. She has a wearable pump at home but has not received a pump through insurance this year. Patient provided with a Medela pump and encouraged to take all of her hospital pump parts home with her. Mother is feeding appropriately for growth of infant and understands stimulating to eat if needed. has had appropriate feedings in the last 24 hours meets the outcomes for weight, output, blood sugar and jaundice at this time. Reinforced understanding of milk production, transition of milk, signs of adequate intake, transition of stool, amount per feeding, community resources, and when to call a provider using the resource of the feeding sheet along with the mom and baby guide. Mother voiced understanding of the information shared, is confident to continue pumping at home, when to call for assistance, denies any additional assistance or education at this time. Reported to the Primary RN.
== END 2024-06-04 13:38 | disposition home or self-care (01) | DRG 560 ==
LOC: ANHLDR 06:49 → ANHOB2 20:23
PROVIDERS: Admitting Provider Obstetrics & Gynecology; Referring Provider Advanced Practice Midwife; Visit Provider Obstetrics & Gynecology
DX: O36.8330 Maternal care for abnormalities of the fetal heart rate or rhythm, third trimester, not applicable or unspecified (principal); Z3A.39 39 weeks gestation of pregnancy; Z37.0 Single live birth; O69.81X0 Labor and delivery complicated by cord around neck, without compression, not applicable or unspecified
CPT/HCPCS: 36415; 85014; 85018; 85025; 86592; 86703; 86850; 86900; 86901; 88307; A9270; G0432; J2590; J2795; J7030; J7120

== ENCOUNTER 2025-06-26 14:41 | Emergency (ER) | payer OTHER, SELFPAY ==
[2025-06-26 14:48] VITALS: BP 135/83; PULSE 101; RESP 18; TEMP 36.9; O2SAT 100
--- NOTE | 2025-06-26 14:59 | ED.NAVMDI ---
HPI - Nausea/Vomiting/Diarrhea General Chief complaint: Abdominal Pain Stated complaint: Stomach Pain Time Seen by Provider: 06/26/25 15:03 Source: patient and RN notes reviewed Mode of arrival: ambulatory Limitations: no limitations History of Present Illness HPI Narrative: 40-year-old female presents with concern for epigastric discomfort, diarrhea. Reports she has been experiencing symptoms since October, she experiences them monthly, they are not related to her menstrual cycle. She reports she is going through a lot of stress. She reports she has the urge to have a bowel movement frequently, sometimes it is loose or watery, sometimes it is soft. She reports occasional blood. She denies current nausea, vomiting. She denies fever, body aches, chills sweats. MD elicited complaint: diarrhea Related Data Home Medications ?Medication ?Instructions ?Recorded ?Confirmed ?Last Taken ?Type omega 8-rgz-jzq-fish oil 1,000 mg 1 cap PO DAILY 06/26/25 Unknown History (120 mg-180 mg) capsule (Fish Oil) Allergies Allergy/AdvReac Type Severity Reaction Status Date / Time No Known Allergies Allergy Unknown Verified 06/26/25 15:00 Review of Systems Review of Systems: CONSTITUTIONAL: Denies malaise, chills, sweats, or fever. ENT: Denies rhinorrhea, congestion, sinus pain, otalgia or sore throat. CARDIOVASCULAR: Denies chest pain, palpitations, or edema. RESPIRATORY: Denies cough or dyspnea. GASTROINTESTINAL: Reports epigastric discomfort. Denies other abdominal pain, nausea, vomiting. Reports loose stools and frequent stools. Denies bloody, or mucous stools. MUSCULOSKELETAL: Denies myalgia. NEUROLOGIC: Denies headache. All systems reviewed & are unremarkable except as noted in HPI and below PMFSH Past Medical History Medical History Patient denies significant medical history Family History Family History Father Diabetes mellitus High cholesterol Hypertension Mother Hypertension Sibling Hypertension Asthma Social History Social History Smoking status: Never smoker Substance use: never Do You Feel Safe in your Home?: Yes Lack of Transportation: No Lack of Food: Never True Current Housing: I Have Housing Concerned About Future Housing: No Difficulty Paying Gas/Electric Bills: No Difficulty Paying for Meds: No Currently Unemployed: No Education: Don't Know Difficulty w/ Childcare or Family Care: No Spiritual care concerns: No Comments At time of signature, agree with nursing past medical, surgical, social and family history. There is no relevant family history pertinent to the presenting complaint Exam Narrative: GENERAL: Well-appearing, well-nourished, and in no acute distress. HEAD: Normocephalic, atraumatic. EYES: PERRLA, conjunctivae clear, and EOMI. ENT: Nares clear. Mucous membranes moist. NECK: Supple. No lymphadenopathy CHEST: Speaks in full sentences. No respiratory distress. HEART: Regular rate and rhythm. SKIN: Warm, dry, no rash. NEURO: Alert and oriented x3. PSYCH: Normal mood and affect Course Course Emergency Course: Patient is aware of diagnosis, understands and agrees to treatment plan. Anticipatory guidance given. Patient agrees to follow-up as directed and is aware of reasons to seek care at the emergency department. Portions of this record may have been created with voice recognition software Level of Care: Express Care Visit Vital Signs Vital signs: Vital Signs Temperature 98.4 F 06/26/25 14:48 Pulse Rate 101 H 06/26/25 14:48 Respiratory Rate 18 06/26/25 14:48 Blood Pressure 135/83 06/26/25 14:48 Pulse Oximetry 100 06/26/25 14:48 Oxygen Delivery Room Air 06/26/25 14:48 Temperature 98.4 F 06/26/25 14:48 Pulse Rate 101 H 06/26/25 14:48 Respiratory Rate 18 06/26/25 14:48 Blood Pressure 135/83 06/26/25 14:48 Pulse Oximetry 100 06/26/25 14:48 Oxygen Delivery Room Air 06/26/25 14:48 Reviewed. MDM - Nausea/Vomiting/Diarrhea MDM Narrative Medical decision making narrative: I evaluated this patient in the express care. History is obtained from patient who is an independent historian and physical exam was performed.? Available medical records were reviewed. ? Exam findings and relevant testing show no acute concerns or changes; patient is non-toxic appearing and is in no distress. ? Differential diagnosis and treatment plan were discussed with the patient. Patient agrees with discussion and after shared medical decision making agrees with plan of care. All questions were answered to the patient's satisfaction. Patient is appropriate for outpatient treatment and follow-up. Critical Care Time Critical Care Time Critical Care Time: No Discharge Plan Discharge Clinical Impression: Gastritis Patient Disposition: Home Condition: Stable Instructions: Diet for Stomach Ulcers and Gastritis (ED) Additional Instructions: Stay hydrated. Follow directions for bland diet included in her discharge instructions. Take Nexium daily for 2 weeks, you can purchase this [id number]. Take a probiotic daily Take Tums or other similar medication for immediate symptom relief as needed. You should go to the hospital if you experience of persistent nausea and vomiting that does not resolve and does not allow you to tolerate any food or fluids, persistent fevers for greater than 2-3 more days, increasing abdominal pain that persists despite medications, persistent diarrhea, dizziness, syncope (fainting), or for any other concerns. Follow-up with your PCP or Gastroenterology Patient Language: Lao Prescriptions: No Action PNV no.95-ferrous fumarate-FA [] 28 mg iron- 800 mcg Tablet 1 tablet PO DAILY ibuprofen 600 mg Tablet 600 mg PO Q6H PRN (Reason: Cramping) Qty: 30 1RF Follow-up/Referrals: Marry,RUDY Rob [Primary Care Provider, Unknown] Vic Saucedo MD [Physician, Gastroenterology] Time of Disposition: 15:12
== END 2025-06-26 15:20 | disposition home or self-care (01) ==
PROVIDERS: Emergency Provider Nurse Practitioner; PCP Physician Assistant
DX: K29.70 Gastritis, unspecified, without bleeding (principal)
CPT/HCPCS: 99211; G0463